=== PATIENT | female | born 1960 | race Caucasian/White ===

== ENCOUNTER → 2018-03-03 09:41 | Outpatient (CLI) | payer OTHER, SELFPAY ==
--- NOTE | 2018-03-03 09:43 | ECHOD_ITS ---
Reason For Study: HTN Procedure This was a 2D Doppler, Color Flow transthoracic echocardiogram. Exam performed in department. Left Ventricle Normal LV size. Left ventricular systolic function is normal. The estimated ejection fraction is 55 %. Transmitral diastolic flow velocities suggest mild (stage 1) diastolic dysfunction (reversed pattern). No regional wall motion abnormalities noted. Right Ventricle Normal RV size. Normal systolic function. Atria Normal left atrium. Normal right atrium. Mitral Valve Normal mitral valve. Tricuspid Valve Normal tricuspid valve. Mild (1+) tricuspid valve insufficiency. Pulmonary artery systolic pressure is 23 mmHg. Aortic Valve Normal aortic valve. Trisinus/trileaflet aortic valve. Pulmonic Valve Normal pulmonic valve. Great Vessels Normal aortic root. The pulmonary artery is normal size. Normal inferior vena cava. Pericardium/Pleural No pericardial effusion. MMode/2D Measurements & Calculations LVIDd: 3.5 cm IVSd: 0.89 cm Ao root diam: 3.2 cm LVIDs: 2.3 cm LVPWd: 1.1 cm RVDd: 2.6 cm FS: 34.8 % LAV(MOD-bp): 20.4 ml EDV(MOD-sp4): 51.3 ml SV(MOD-sp4): 27.2 ml LAV(MOD-bp) Indexed: 12.7 ml/m2 ESV(MOD-sp4): 24.2 ml LAV(MOD-sp2): 24.1 ml EF(MOD-sp4): 52.9 % LAV(MOD-sp4): 17.1 ml LA A4 area: 9.5 cm2 RA A4 area: 9.2 cm2 Doppler Measurements & Calculations MV E max roberto: 63.5 cm/sec Lat Peak E' Roberto: 9.3 cm/sec Med Peak E' Roberto: 6.3 cm/sec MV A max roberto: 78.6 cm/sec E/E' lat: 6.8 E/E' med: 10.1 MV E/A: 0.81 Ao V2 max: 142.0 cm/sec LV V1 max: 95.2 cm/sec PA V2 max: 91.8 cm/sec Ao max P.1 mmHg LV V1 max P.6 mmHg TR max roberto: 222.9 cm/sec TR max P.0 mmHg Interpretation Summary Normal LV size. Left ventricular systolic function is normal. The estimated ejection fraction is 55 %. Transmitral diastolic flow velocities suggest mild (stage 1) diastolic dysfunction (reversed pattern). Mild (1+) tricuspid valve insufficiency. Pulmonary artery systolic pressure is 23 mmHg. Ordering Physician: Handy Hilario Referring Physician: Handy Hilario Performed By: Ivon River RDCS
== END ==
PROVIDERS: Visit Provider Internal Medicine Cardiovascular Disease
DX: R07.9 Chest pain, unspecified (principal)
CPT/HCPCS: 93306

== ENCOUNTER → 2018-04-19 07:30 | Outpatient (CLI) | payer OTHER, SELFPAY ==
--- NOTE | 2018-04-19 07:30 | DT_ITS ---
This patient was seen during an EMR downtime April 19, 2018 - April 26, 2018. This patient may have a combination of paper and electronic documentation or all paper documentation. All documentation is viewable within the e-chart portion of [facility] for each patient visit.
[2018-04-22 14:03] LABS: Mucous, Urine 0 SEEN /hpf (<or=2+); Red Blood Cells-Urine 0 SEEN /hpf (0-5)
[2018-04-23 21:09] LABS: Color, Urine Orange (Yellow); Glucose, Dipstick NEGATIVE (Normal); Urine Bilirubin Dipstick 1 mg/dL (Negative); Urine Clarity Sl Cloudy (Clear)
[2018-04-23 21:10] LABS: Bacteria RARE /hpf (None Seen); Ketone-Dipstick Negative (Negative); Leukocyte Esterase-Dipstick Trace /ul (Negative); Nitrite-Dipstick Positive (Negative); Occult Blood-Urine Negative /ul (Negative); Protein-Dipstick Negative (Negative); Specific Gravity, Urine 1.025 (1.002-1.030); Squamous Epithelial Cells - UA 0-5 SEEN /hpf (5-10); Urine Urobilinogen 1 mg/dl (Normal); White Blood Cells 5-10 SEEN /hpf (0-5)
== END ==
PROVIDERS: Visit Provider Physician Assistant Surgical
DX: R30.0 Dysuria (principal)
CPT/HCPCS: 81001; 87077; 87086; 87088; 87186

== ENCOUNTER → 2025-01-28 | Outpatient (CLI) | payer OTHER, SELFPAY ==
--- NOTE | 2025-01-28 11:15 | US_ITS ---
PROCEDURE: KIDNEY AND BLADDER REASON FOR EXAM: Pain, urinary tract infection TECHNIQUE: Multiple high-resolution sonographic images of the bladder and kidneys COMPARISON: None. FINDINGS: Right kidney measures 10.7 x 4.3 x 5.6 cm. Left kidney measures 11.4 x 4.7 x 5.5 cm. 2 cysts in the inferior pole of the right kidney, largest measuring up to 4.2 cm. No sizable shadowing renal calculi or significant hydronephrosis. Urinary bladder is within normal limits. US/Kidney and Bladder IMPRESSION: Right renal cysts. Reading Location: [facility]
== END | disposition home or self-care (01) ==
LOC: US 11:12
PROVIDERS: PCP Nurse Practitioner Family; Referring Provider Urology; Visit Provider Urology
DX: N39.0 Urinary tract infection, site not specified (principal)
CPT/HCPCS: 76770